=== PATIENT | female | born 1990 | race Two or more races ===

== ENCOUNTER 2022-12-29 10:29 | Outpatient (REF) | payer OTHER, SELFPAY ==
--- NOTE | ~2022-12-29 | XR_ITS ---
EXAMINATION: BILATERAL HIP AND BILATERAL FOOT. CLINICAL INFORMATION: Pain. COMPARISON: None TECHNIQUE: 2 views each hip. 3 views each foot. FINDINGS: Right hip: There is no visible acute fracture, dislocation or subluxation. The right hip joint space is maintained normal. The soft tissues are normal. Left hip: There is no visible acute fracture, dislocation or subluxation. No bony erosive changes. The soft tissues are normal. Right foot: There is no visible acute fracture, dislocation or subluxation. The ankle mortise and subtalar joints are normal. The soft tissues are normal. Left foot: There is no visible acute fracture, dislocation or subluxation. The ankle mortise and subtalar joints are normal. The soft tissues are normal. XR/XR foot RT min 3V IMPRESSION: 1. Unremarkable bilateral hip exam. 2. Unremarkable bilateral foot exam. 3. No acute fracture or dislocation either foot.
--- NOTE | ~2022-12-29 | XR_ITS ---
EXAMINATION: BILATERAL HIP AND BILATERAL FOOT. CLINICAL INFORMATION: Pain. COMPARISON: None TECHNIQUE: 2 views each hip. 3 views each foot. FINDINGS: Right hip: There is no visible acute fracture, dislocation or subluxation. The right hip joint space is maintained normal. The soft tissues are normal. Left hip: There is no visible acute fracture, dislocation or subluxation. No bony erosive changes. The soft tissues are normal. Right foot: There is no visible acute fracture, dislocation or subluxation. The ankle mortise and subtalar joints are normal. The soft tissues are normal. Left foot: There is no visible acute fracture, dislocation or subluxation. The ankle mortise and subtalar joints are normal. The soft tissues are normal. XR/XR hip LT min 2V IMPRESSION: 1. Unremarkable bilateral hip exam. 2. Unremarkable bilateral foot exam. 3. No acute fracture or dislocation either foot.
--- NOTE | ~2022-12-29 | XR_ITS ---
EXAMINATION: BILATERAL HIP AND BILATERAL FOOT. CLINICAL INFORMATION: Pain. COMPARISON: None TECHNIQUE: 2 views each hip. 3 views each foot. FINDINGS: Right hip: There is no visible acute fracture, dislocation or subluxation. The right hip joint space is maintained normal. The soft tissues are normal. Left hip: There is no visible acute fracture, dislocation or subluxation. No bony erosive changes. The soft tissues are normal. Right foot: There is no visible acute fracture, dislocation or subluxation. The ankle mortise and subtalar joints are normal. The soft tissues are normal. Left foot: There is no visible acute fracture, dislocation or subluxation. The ankle mortise and subtalar joints are normal. The soft tissues are normal. XR/XR hip RT min 2V IMPRESSION: 1. Unremarkable bilateral hip exam. 2. Unremarkable bilateral foot exam. 3. No acute fracture or dislocation either foot.
--- NOTE | ~2022-12-29 | XR_ITS ---
EXAMINATION: BILATERAL HIP AND BILATERAL FOOT. CLINICAL INFORMATION: Pain. COMPARISON: None TECHNIQUE: 2 views each hip. 3 views each foot. FINDINGS: Right hip: There is no visible acute fracture, dislocation or subluxation. The right hip joint space is maintained normal. The soft tissues are normal. Left hip: There is no visible acute fracture, dislocation or subluxation. No bony erosive changes. The soft tissues are normal. Right foot: There is no visible acute fracture, dislocation or subluxation. The ankle mortise and subtalar joints are normal. The soft tissues are normal. Left foot: There is no visible acute fracture, dislocation or subluxation. The ankle mortise and subtalar joints are normal. The soft tissues are normal. XR/XR foot LT min 3V IMPRESSION: 1. Unremarkable bilateral hip exam. 2. Unremarkable bilateral foot exam. 3. No acute fracture or dislocation either foot.
[2022-12-29 12:04] LABS: MANUAL DIFF FLAG NO
[2022-12-29 12:30] LABS: Basophils Percent Auto 0.2 % (0-2); Eosinophils Absolute Auto 0.1 X10*3/uL (0.0-0.4); Eosinophils Percent Auto 2.5 % (0-4); Hematocrit 37.1 % (37.0-47.0); Hemoglobin 11.5 g/dl (12.0-16.0); Imm Gran Abs Auto 0.01 X10*3/uL (0.00-0.03); Imm Gran Pct Auto 0.2 % (0.0-0.4); Lymphocytes Absolute Auto 2.5 X10*3/uL (1.2-4.9); Lymphocytes Percent Auto 49.1 % (20-40); Mean Corpuscular Hemoglobin 24.1 pg (27.0-33.0); Mean Corpuscular Volume 77.8 fL (80.0-98.0); Mean Platelet Volume 11.6 fL (9.4-12.3); Monocytes Absolute Auto 0.5 X10*3/uL (0.1-1.2); Monocytes Percent Auto 8.8 % (2-11); Neutrophils Percent Auto 39.2 % (45-73); Platelet Count 281 X10*3/uL (160-400); Red Blood Count 4.77 X10*6/uL (4.20-5.50); Red Cell Distribution Width 19.4 % (11.0-16.0); White Blood Count 5.1 X10*3/uL (4.8-10.8)
[2022-12-29 13:06] LABS: Alanine Aminotransferase 30 U/L (0-31); Albumin Level 3.8 g/dL (3.5-5.0); Alkaline Phosphatase 75 U/L (39-117); Anion Gap 12 (12-20); Aspartate Amino Transferase 20 U/L (5-31); Bilirubin Total 0.5 mg/dL (0.0-1.0); Blood Urea Nitrogen 12 mg/dL (9-16); C Reactive Protein 0.21 mg/dL (< or = 0.50); Calcium 9.5 mg/dL (8.4-10.2); Carbon Dioxide 25 mmol/L (22-29); Chloride 107 mmol/L (96-108); Estimated Glomerular Filt Rate > 60; Glucose Random 109 mg/dL (60-115); Potassium 4.2 mmol/L (3.3-5.1); Sodium 140 mmol/L (135-145)
[2022-12-29 13:11] LABS: Thyroid Stimulating Hormone 0.78 uIU/mL (0.32-4.0)
[2022-12-29 13:22] LABS: Erythrocyte Sedimentation Rate 7 MM/HR (0-20)
[2022-12-29 15:34] LABS: Creatinine Urine 271.16 mg/dL; Protein/Creatinine Ratio, Ur 0.04 (<0.2); Total Protein Urine Random 12 mg/dL (<12)
[2022-12-31 13:24] LABS: SM/Ribonucleoprotein Ab <1.0 NEG AI (<1.0 NEG); Smith Protein <1.0 NEG AI (<1.0 NEG)
== END 2022-12-29 10:30 | disposition home or self-care (01) ==
LOC: HO.XRAY 10:29
PROVIDERS: PCP Internal Medicine; Visit Provider Internal Medicine Rheumatology
DX: R76.8 Other specified abnormal immunological findings in serum (principal); M79.671 Pain in right foot; M79.672 Pain in left foot; M25.551 Pain in right hip; M25.552 Pain in left hip; M25.531 Pain in right wrist; M25.532 Pain in left wrist; R63.5 Abnormal weight gain; Z79.899 Other long term (current) drug therapy
CPT/HCPCS: 36415; 73502; 73630; 80053; 84156; 84443; 85025; 85652; 86140; 86235; 99202

== ENCOUNTER 2023-11-10 07:50 | Outpatient (AMB) | payer OTHER, SELFPAY ==
--- NOTE | 2023-11-10 07:54 | MHC.OFFVIS ---
Intake Vital Signs 11/10/23 07:55 Height 5 ft 5 in Weight 184 lb 11.958 oz BMI 30.7 BP 128/70 Blood Pressure Location Rt brachial Position Sitting Pulse 87 Pulse Source Pulse Oximeter Temp 97 F Temp Source Skin Pulse Oximetry (%) 97 Oxygen Delivery Method Room Air Intake Visit Reasons: +NU/joint pain Intake Note: Pt last seen by Dr Flores on 12/29/22, presents today for joint pain eval. Reports having right arm pain, on going since June. Did chiropractor x 3 months. [employer] Required: No Accompanied by: Self / Same As Patient Allergies Seasonal Allergies Allergy (Unknown, Verified 12/29/22 10:38) Unknown Medication List - Last Reconciled 11/10/23 by Sarah Ramos MD albuterol sulfate 90 mcg/actuation (ProAir HFA) 2 puffs inhalation Q6H PRN ibuprofen 600 mg PO Q8H PRN tretinoin 0.1% 1 appl topical BEDTIME HPI HPI Comments History of Present Illness Details 33-year-old female previously evaluated for positive NU by Dr. Flores earlier this year and by Dr. Amaya in 2013 who presents for re-evaluation. No autoimmune illness was found in the past. Patient states that she continues to have pain in multiple areas including her hips, hands, ankles. She has bilateral ankle pain, usually worse in the morning. She works as a respiratory therapist and a nurse and she has hand pain with certain activities such as holding an ET tube. She denies any skin rashes. She states that in the hot weather she might run a low-grade fever like 99.1. She denies any history of DVT/PE. She has had 7 pregnancies in total, 5 children and 2 abortions. She states that her hands contained change color in to white in the extreme cold. States that her brother was diagnosed with lupus. Previous history by Dr. Flores: The patient is seen for evaluation of multiple areas of joint pain and a positive NU. She had been evaluated back in [address] [facility] [address] Amaya, a consumer lender. Workup at the time did not show any significant signs of inflammatory arthritis and she was thought to have some tendinitis at the wrists. She has had off and on periods of time when she had worse pain. These painful areas have involved the wrists, lower back, lateral and anterior hips, and feet. The foot pain seems to radiate proximally up into the calf area as well. All of these pains seem to be worse with more physical activity. The patient works as a respiratory therapist so was on her feet most of the day when she works. When she works at night she gets extra fatigue. She has 5 kids at home ranging in age from to 2 to 14. She does take occasional [id number] analgesics for her symptoms with some benefit. She does not have any oral ulcers, hand paresthesias, dry eyes, dry mouth, skin rashes or diarrhea. [facility] Medical History Lymphadenopathy syndrome Flat foot Surgical History Hx of dilation and curettage History of colposcopy H/O abdominoplasty Family History Mother Breast cancer Thyroid disease Fibromyalgia Brother Diabetes SLE (systemic lupus erythematosus) Paternal Grandmother CAD (coronary artery disease) Social History Household Members: Children Alcohol intake: never Patient Tobacco Use Status: Never used Tobacco Current occupational status: employed Current occupation: Respitory therapist, nurse Female Reproductive History Menstrual Total pregnancies: 7 Full term: 5 Ab induced: 2 Review of Systems Const Reports fever(s) Musc Reports arthralgias Skin/Breast Denies rash Physical Exam Vital Signs: Last Vital Signs Temp 97 F 11/10/23 07:55 Pulse 87 11/10/23 07:55 BP 128/70 11/10/23 07:55 Pulse Ox 97 11/10/23 07:55 Oxygen Delivery Method Room Air 11/10/23 07:55 BMI result Body Mass Index 30.7 Const General: cooperative, healthy appearing and comfortable Nutritional Appearance: overweight Orientation/consciousness: patient oriented x3 Limitations: no limitations HEENT Head: Yes normocephalic and Yes atraumatic Mouth: moist mucous membranes Resp Effort & Inspection: normal respiratory effort and able to speak in complete sentences Auscultation: clear to auscultation bilaterally Cardio Rate: regular rate Rhythm: regular rhythm GI Inspection: No distended Palpation (GI): Soft to palpation and nontender Skin General skin exam: no rashes or lesions noted Neuro General: patient oriented x3 Extrem Other: No active synovitis Normal nailfold capillaroscopy No tender joints elicited Negative rotator cuff provocative maneuvers bilaterally Negative resisted wrist extension test bilaterally Left knee crepitus Bilateral flatfeet Results Reviewed Results Reviewed: April, lab work at [facility]: Anti DNA negative, NU positive 1-320 with a speckled pattern, rheumatoid factor negative, Lyme disease antibody negative, hemoglobin 13, platelet count normal, TSH normal, transaminases and LFTs normal. Assessment & Plan Assessment & Plan (1) NU positive: Comment: 04/2022: 1:320, speckled Code(s): R76.8 - Other specified abnormal immunological findings in serum Plan: This is a 33-year-old female who presents for evaluation of a positive NU. Patient was evaluated by Dr. Flores earlier this year and in [address] Amaya and no evidence of an autoimmune rheumatic disease was found. Upon evaluation today I do not see any evidence of an autoimmune rheumatic disease. She has a positive NU with negative sub serologies and normal inflammatory markers. Follow-up as needed Plan I spent 27 minutes reviewing patient's chart, evaluating patient, counseling patient and documenting in the chart Coding Level of Care Code Est Pt Level 4 (89525) Diagnoses NU positive R76.8
[2023-11-10 07:55] VITALS: BP 128/70; PULSE 87; TEMP 36.1; O2SAT 97; BMI 30.7
== END 2023-11-10 09:00 | disposition home or self-care (01) ==
PROVIDERS: PCP Internal Medicine; Visit Provider Student in an Organized Health Care Education/Training Program
DX: R76.8 Other specified abnormal immunological findings in serum (principal)
CPT/HCPCS: 99214

== ENCOUNTER → 2023-11-10 07:50 | Outpatient (BNVA) | payer OTHER, SELFPAY | PROVIDERS: PCP Internal Medicine; Visit Provider Student in an Organized Health Care Education/Training Program | DX: R76.8 Other specified abnormal immunological findings in serum (principal) | CPT/HCPCS: 99212 ==